=== PATIENT | female | born 1940 | race Caucasian/White ===

== ENCOUNTER 2016-08-31 13:02 | Emergency (ER) | payer MEDICARE, MEDICAID ==
--- NOTE | 2016-08-31 13:22 | EDPRACDOC ---
- General Information Stated Complaint: WEAKNESS Time Seen by Provider: 08/31/16 13:08 Information Source: Sort Manager Mode Of Arrival: Ambulance Home Medications: Home Medications Aspirin [Aspirin, Chewable] 81 mg PO DAILY 07/17/13 Calcium Carbonate + Vitamin D [Oscal with Vitamin D] 500 mg PO BID 07/17/13 Lactulose [Enulose] 30 ml PO DAILY PRN 07/17/13 [id number] Ethyl Esters [Lovaza ([place]-3 Acid Ethyl Esters)] 1,000 mg PO DAILY 07/17/13 Sennosides/Docusate Sodium [Senna S Tablet] 1 tab PO HS 07/17/13 Risperidone Microspheres [Risperdal Consta] 37.5 mg IM .[id number] 04/20/14 Health Shake Supplement 1 each PO DAILY@0700,1100 06/15/14 Dimethicone/Zinc Oxide [Alexandra Protect Cream] 142 gm TOP Q2H 08/31/16 Divalproex Sodium [Depakote] 375 mg PO BID 08/31/16 Loratadine [Claritin] 10 mg PO DAILY 08/31/16 Nitrofurantoin Monohyd/M-Cryst [Macrobid 100 mg Capsule] 100 mg PO .[id number] Rivastigmine Tartrate [Exelon] 6 mg PO BID 08/31/16 Zinc Oxide 30 gm TOP Q2H 08/31/16 Allergies/Adverse Reactions: Allergies Allergy/AdvReac Type Severity Reaction Status Date / Time Sulfa (Sulfonamide Allergy Unknown Unknown Verified 08/31/16 14:24 Antibiotics) - History of Present Illness HPI: PT PRESENTS VIA EMS FROM [facility]. LIMITED HISTORY. NON OBTAINED BY PATIENT. PT IS DROOLING, TONGUE PROTRUDING, DOES NOT APPEAR SWOLLEN. PUPILS PINPOINT. ED Past Medical History - History Reviewed Yes Nurses notes reviewed and agree except as marked - Patient Medical History Neurological History: Reports: Dementia Cardiac History: Reports: Hypertension, Congestive Heart Failure (PER PT), Hypercholesterolemia Respiratory History: Reports: COPD Musculoskeletal History: Reports: Arthritis, Osteoarthritis Psychological History: Reports: Bipolar Disorder (PT DENEIS BUT RECORDS CONFIRM) . Denies: Substance Use Disorder Systemic History: Reports: Diabetes. Denies: Cancer Surgical History: Reports: Hysterectomy, Other (Right hip ORIF) - Family Medical History Reports: Diabetes (In grandparent.), Cancer (Father with prostate cancer.), Cardiac Disorders (Mother with [place].) - Social Medical History Smoking Status: Former smoker Social History: Denies: Substance Use Disorder EDM Review of Systems - Review of Systems ROS Unobtainable: Yes Review of systems cannot be obtained due to the patient's medical condition - Physical Exam Constitutional: No apparent distress Oriented to: Unable to Test Last recorded Vital Signs: Oxygen Pulse Oxygen Saturation O2 Device Oxygen Flow Rate Fraction of Inspired Oxygen ( FIO2) - HEENT Head: Normal Eye Exam: Other (PINPOINT. APPEARS TO HAVE DIFFICULTY LOOKING UP.) Nose: No Symptoms Reported Neck: Normal - Respiratory/Cardiovascular Respiratory: Normal - CTA Cardiovascular: Normal - GI Tenderness: Non tender - Musculoskeletal Back: Normal Extremities: Normal - Integumentary Skin: Cool Lymphatics: Normal - Neurologic Memory Impaired: Unable to Test Motor Function: Unable to Test - Re-evaluation Re-evaluation 1 Re-evaluation Time: 16:23 PT APPEARS IMPROVED. TONGUE NOT PROTRUDING. NOT DROOLING. PATENT AIRWAY. - Results 08/31/16 14:15 08/31/16 14:15 Decision Time to Discharge: 16:21 - Departure Yes I personally saw and evaluated the patient. Disposition: Home Condition: Stable Final Diagnosis: Attacks of weakness Altered mental status Qualifiers: Altered mental status type: unspecified Qualified Code(s): R41.82 - Altered mental status, unspecified Instructions: Weakness (General) Referrals: None,No Provider [Primary Care Provider] - One Week
[2016-08-31 13:23] VITALS: TEMP 97.4
[2016-08-31 13:31] VITALS: BMI 28.3
[2016-08-31 13:33] LABS: WBC/URINE 0-2 (0-5)
[2016-08-31 13:36] LABS: LEUKOCYTES/URINE NEG (NEGATIVE); NITRITE/URINE NEG (NEGATIVE); URINE OCCULT BLOOD NEG (NEG/TRACE)
[2016-08-31 13:54] LABS: ALLEN'S TEST PASS; BEb 9.2 (+/- 2); TCO2 34.8 MMOL/L (23-27)
[2016-08-31 13:55] LABS: ABG Draw Site Right Radial
[2016-08-31 14:26] LABS: AUTOMATED BASOPHIL 0.7 % (0-2); AUTOMATED EOSINOPHIL 0.7 % (0-5); AUTOMATED LYMPH 32.1 % (17-44); AUTOMATED MONOCYTE 13.1 % (3-10); AUTOMATED NEUTROPHIL 53.4 % (45-76); MPV 7.3 fL (7.4-10.4)
[2016-08-31 14:38] LABS: BLOOD UREA NITROGEN 24 MG/DL (7-17); CALC CORRECTED 10.7 MG/DL (8.4-10.2); CALCIUM 10.3 MG/DL (8.4-10.2); CALCULATED OSMOLALITY 276 MOs/Kg (270-290); CHLORIDE 101 mEq/L (98-107); GLUCOSE 118 MG/DL (70-99); SODIUM LEVEL 141 mEq/L (137-146)
--- NOTE | 2016-08-31 15:54 | DIRPT ---
CLINICAL DATA: Altered mental status EXAM: CT HEAD WITHOUT CONTRAST TECHNIQUE: Contiguous axial images were obtained from the base of the skull through the vertex without intravenous contrast. COMPARISON: 10/25/2014 FINDINGS: No skull fracture is noted. Again noted skull hyperostosis interna in frontal and parietal region. There is mucosal thickening with partial opacification bilateral ethmoid air cells. Mild mucosal thickening bilateral frontal sinus. Mucosal thickening bilateral sphenoid sinus. Atherosclerotic calcifications of carotid siphon. The mastoid air cells are unremarkable. No intracranial hemorrhage, mass effect or midline shift. No acute cortical infarction stable atrophy and chronic white matter disease. IMPRESSION: No acute intracranial abnormality. Stable atrophy and chronic white matter disease. No definite acute cortical infarction. Extensive paranasal sinuses disease as described above. Electronically Signed By: Trevon Santana M.D. On: 08/31/2016 15:51
--- NOTE | 2016-08-31 16:18 | DIRPT ---
CLINICAL DATA: 76-year-old female altered mental status, unable to and Sir questions. Initial encounter. EXAM: PORTABLE CHEST 1 VIEW COMPARISON: 10/25/2014 and earlier FINDINGS: Portable AP upright view at 1535 hours. Stable lung volumes. Stable cardiac size and mediastinal contours. Incidental mitral annular calcification. Calcified aortic atherosclerosis. Allowing for portable technique, the lungs are clear. No pneumothorax or pleural effusion. Chronic endplate spurring in the spine. IMPRESSION: No acute cardiopulmonary abnormality. Electronically Signed By: Gonzalez Mckeon M.D. On: 08/31/2016 16:15
[2016-08-31 17:09] VITALS: BP 130/78; PULSE 86
== END 2016-08-31 17:38 | disposition home or self-care (01) ==
LOC: ED 13:02
DX: R53.1 Weakness (principal); R41.82 Altered mental status, unspecified
CPT/HCPCS: 36415; 36600; 70450; 71010; 80053; 81001; 82803; 83690; 83880; 85025; 87040; 87086; 99283

== ENCOUNTER 2016-08-31 20:00 | Inpatient (IN) | payer MEDICARE, MEDICAID ==
--- NOTE | 2016-08-31 20:45 | EDPRACDOC ---
- Treatment Prior to ED Arrival Reported Medications/Treatment IT ANALYST EMS Treatment BLS - General Information Chief Complaint: Generalized Weakness Stated Complaint: WEAKNESS Time Seen by Provider: 08/31/16 20:20 Information Source: Residential Mode of Arrival:: Ambulance Home Medications: Home Medications Aspirin [Aspirin, Chewable] 81 mg PO DAILY 07/17/13 Calcium Carbonate + Vitamin D [Oscal with Vitamin D] 500 mg PO BID 07/17/13 Lactulose [Enulose] 30 ml PO DAILY PRN 07/17/13 [id number] Ethyl Esters [Lovaza ([place]-3 Acid Ethyl Esters)] 1,000 mg PO DAILY 07/17/13 Sennosides/Docusate Sodium [Senna S Tablet] 1 tab PO HS 07/17/13 Risperidone Microspheres [Risperdal Consta] 37.5 mg IM .[id number] 04/20/14 Health Shake Supplement 1 each PO DAILY@0700,1100 06/15/14 Dimethicone/Zinc Oxide [Alexandra Protect Cream] 142 gm TOP Q2H 08/31/16 Divalproex Sodium [Depakote] 375 mg PO BID 08/31/16 Loratadine [Claritin] 10 mg PO DAILY 08/31/16 Nitrofurantoin Monohyd/M-Cryst [Macrobid 100 mg Capsule] 100 mg PO .[id number] Rivastigmine Tartrate [Exelon] 6 mg PO BID 08/31/16 Zinc Oxide 30 gm TOP Q2H 08/31/16 Allergies/Adverse Reactions: Allergies Allergy/AdvReac Type Severity Reaction Status Date / Time Sulfa (Sulfonamide Allergy Unknown Unknown Verified 08/31/16 14:24 Antibiotics) - History of Present Illness Exact Onset of Symptoms: Unknown Date Symptoms Started: 08/31/16 Symptoms Started: Reports: Suddenly Symptoms: Reports: Facial droop, Slurred speech Symptoms Description: Constant Symptom Severity: Reports: Unable to performs ADL's Weakness: Left: Face HPI: PATIENT PRESENTS FROM [facility] WITH ALTERED MENTAL STATUS. PATIENT HAD BEEN SEEN EARLIER TODAY AND CONTACT FROM [facility] WAS UNAWARE OF ANY NEW CHANGE ALTHOUGH PATIENT WAS DROOLING AND APHASIC. TONIGHT STAFF WHO KNOW HER STATE SHE NORMALLY CAN STAND AND EXPRESS HER NEEDS. TONIGHT THEY NOTE SHE HAS LEFT FACIAL DROOP AND SLURRED SPEECH. UNKNOWN TIME OF OCCURRENCE ED Past Medical History - History Reviewed Yes Nurses notes reviewed and agree except as marked Travel Outside of [place] in the Last 3 Months?: No - Patient Medical History Neurological History: Reports: Dementia Cardiac History: Reports: Hypertension, Congestive Heart Failure (PER PT), Hypercholesterolemia Respiratory History: Reports: COPD Musculoskeletal History: Reports: Arthritis, Osteoarthritis Psychological History: Reports: Bipolar Disorder. Denies: Depression, Substance Use Disorder Systemic History: Reports: Diabetes. Denies: Cancer Surgical History: Reports: Hysterectomy, Other (Right hip ORIF) - Family Medical History Reports: Diabetes (In grandparent.), Cancer (Father with prostate cancer.), Cardiac Disorders (Mother with [place].) - Social Medical History Smoking Status: Former smoker Social History: Denies: Substance Use Disorder ETOH: None Substance Abuse: None Lives In: Group Home Facility EDM Review of Systems - Review of Systems ROS Unobtainable: Yes Hx Limited due to age/level of understanding of patient Constitutional: No Symptoms Reported. negative: Fever, Chills, Weakness, Fatigue, Loss of Appetite Eyes: No Symptoms Reported. negative: Redness, Blurred Vision, Double Vision, Discharge, Pain, Light Sensitive, Photophobia Ears: No Symptoms Reported. negative: Pain, Hearing Loss, Drainage, Ear Pulling Throat: No Symptoms Reported. negative: Pain, Swelling Nose: No Symptoms Reported. negative: Congestion, Bleeding, Discharge, Injection, Swelling, Deformity, Ecchymosis, Tender, Abrasion, Laceration Mouth: No Symptoms Reported. negative: Pain, Drooling Respiratory: No Symptoms Reported. negative: Cough, Brassy Cough, Barky Cough, Shortness of Breath, Wheezing, Hemoptysis Cardiovascular: No Symptoms Reported. negative: Chest Pain, Palpitations, Syncope, Edema, Orthopnea, PND, Skin Mottling, Cyanosis Gastrointestinal: No Symptoms Reported. negative: Pain, Constipation, Nausea, Vomiting, Diarrhea, Melena, Formula Intolerance Genitourinary: No Symptoms Reported. negative: Dysuria, Hematuria, Frequency, Discharge, Bleeding, Testicular Pain, Neurological: Speech Difficulty, Weakness. negative: Dizziness, Gait Difficulty , Headache, Numbness, Seizure Musculoskeletal: No Symptoms Reported. negative: Neck, Chestwall, Ribs, Back, Shoulder, Arm, Elbow, Forearm, Wrist, Hand, Pelvis, Hip, Femur, Knee, Leg, Ankle , Foot Integumentary: No Symptoms Reported. negative: Itching, Rash, Bruising, Wound Allergic/Immunologic: No Symptoms Reported. negative: Hives, Itching Hematologic: No Symptoms Reported. negative: Lymphadenopathy, Easy Bruising, Easy Bleeding Endocrine: No Symptoms Reported. negative: Weight Gain, Weight Loss Psychiatric: No Symptoms Reported. negative: Anxiety, Depression, Hallucinations, Insomnia, Suicidal - Physical Exam Constitutional: Alert (Awake) Oriented to: Not Oriented Last recorded Vital Signs: Last Vital Signs Temp 97.4 F L 08/31/16 20:09 Pulse 93 08/31/16 20:09 Resp 18 08/31/16 20:09 BP 124/56 L 08/31/16 20:09 Pulse Ox 97 08/31/16 20:09 Oxygen Pulse Oxygen Saturation 97 O2 Device Room Air Oxygen Flow Rate Fraction of Inspired Oxygen ( FIO2) - HEENT Head: Other (LEFT FACIAL DROOP) Eye Exam: Normal (PERRL, EOMI, Sclera white) Oropharynx: Normal (Pharynx:Moist without exudate,Gums-no swelling) Tympanic Membrane: Normal ENT EAC: Normal TMJ: Normal Nose: No Symptoms Reported (septum midline) Neck: Normal (FROM, trachea at midline) - Respiratory/Cardiovascular Respiratory: Normal - CTA (BBS clear to auscultation without adventitious sounds ) Cardiovascular: Normal (RRR without murmur, gallop or rub) - GI Auscultation: Normal (NABS) Palpation: Normal (Soft,No rebound or guarding, non distended) Tenderness: Non tender Oshea's Sign: Negative - Musculoskeletal Back: Normal (Non-Tender) Extremities: Normal (Normal tone, Pulses 2+ No cyanosis or edema, FROM) - Integumentary Skin: Normal, Warm, Dry Lymphatics: Normal (no adenopathy) - Neurologic Memory Impaired: Normal Motor Function: Normal (Normal tone, Pulses 2+ No cyanosis or edema, FROM) Cranial Nerve: Normal (CN II-X11 intact sensation, strength 5/5) Cerebellar: Normal Mood Description: Normal Perception: Normal NIH Stroke Scale Initial Evaluation Level of Consciousness: Alert LOC- Question: Answers Both Incorrect LOC Commands: One Task Correctly Best Gaze: Normal Visual: No Visual Loss Facial Palsy: Partial Paralysis Motor Arm LEFT: No Movement Motor Arm RIGHT: Drift Motor Leg LEFT: No Effort Against [place] Motor Leg RIGHT: No Effort Against [place] Limb Ataxia: Absent Sensory: Normal Best Language: Mild to Moderate Aphasia Dysarthria: Mild to Moderate Extinction and Inattention: No Abnormality (Neglect) Score: 18out of42 - Departure Yes I personally saw and evaluated the patient. Disposition: Admit IP To This Hospital Condition: Fair Final Diagnosis: Acute CVA (cerebrovascular accident), Left-sided weakness Instructions: Weakness (General) Education/Counseling Given To: Patient Education/Counseling Given Regarding: Diagnosis, Treatment, Prognosis Referrals: Tereza Vallejo MD [Primary Care Provider] - One Week Decision to Admit Time: 21:01 Decision to admit date: 08/31/16 Decision to admit: from ED - Physician Consulted Neurology Time Called: 20:56 Provider Called: MUSA (NEUROLOGY) Time [employer] Returned Call: 20:58 (GIVE PLAVIX) Hospitalist Time Called: 21:01 Provider Called: Neel Garcia Time [employer] Returned Call: 21:01
[2016-08-31] MEDS ORDERED: CLOPIDOGREL 75 MG TAB PO ONE (20:55)
--- NOTE | 2016-08-31 23:56 | HISTPHYS ---
- Chief Complaint weak - History of Present Illness PRIMARY CARE PHYSICIAN: Dr. Vallejo The patient is a resident of [facility] HPI: The patient is a 76 yo woman from [facility] who presented earlier today with some drooling and tongue protruding, had a workup, the drooling and tongue protrusion mostly resolved, and then the patient was sent back to the facility. The patient returned to the emergency department later today with worsening drooling, paucity of speech, and altered mental status; this was apparently a worsening of her status. The patient is able to say only a few garbled words and cannot give any history, so history is obtained from the emergency department staff, medical records, and the facility staff. Per staff at the facility, the patient's baseline was that she uses a wheelchair, but she can normally talk without difficulty, does not have upper extremity weakness, and does not have any difficulty with eating. Usually she has no difficulty eating but by supper time today, she could not even take pureed foods, she was drooling , and she had a facial droop. They also noticed today that her left arm is weak. Onset of symptoms: unclear. First episode happened around noon today. Then after she returned, she gradually worsened. but happened before 6 pm today. Duration: intermittent. Location: Face, mouth, left arm. Radiation: none. Character: decreased speaking. Drooling. Left arm weakness. Altered mental status/confusion. Alleviated by nothing. Exacerbated by nothing. Associated symptoms: decreased speaking. Drooling. Left arm weakness. Altered mental status/confusion. Treatments: none except usual medications. The emergency department physician discussed the case with the neurologist compressor station operator, Dr. Moise, who recommended that the patient be placed on Plavix because she was already taking aspirin. - Medical History Cardiac History: Reports: Hypertension, Congestive Heart Failure (ECHO 2014: EF55-60%. Diastolic dysfunction. Pulm art press 39mmHg. Mild TR.), Hypercholesterolemia (AND PERIPHERAL VASCULAR DISEASE), Other Respiratory History: Reports: COPD (possible diagnosis) Musculoskeletal History: Reports: Arthritis, Osteoarthritis Systemic History: Reports: Diabetes. Denies: Cancer Neurological History: Reports: Dementia Psychological History: Reports: Bipolar Disorder (TYPE 1.). Denies: Depression , Substance Use Disorder - Surgical History Reports: Hysterectomy, Other (Right hip ORIF) - Medictions/Allergies Allergies Sulfa (Sulfonamide Antibiotics) Allergy (Unknown, Verified 08/31/16 14:24) Unknown Per [facility] Cynthia ADAME. Current Medication List: Reviewed Home Medications Aspirin [Aspirin, Chewable] 81 mg PO DAILY 07/17/13 Calcium Carbonate + Vitamin D [Oscal with Vitamin D] 500 mg PO BID 07/17/13 Lactulose [Enulose] 30 ml PO DAILY PRN 07/17/13 Ywgvz-4-Pobd Ethyl Esters [Lovaza ([place]-3 Acid Ethyl Esters)] 1,000 mg PO DAILY 07/17/13 Sennosides/Docusate Sodium [Senna S Tablet] 1 tab PO HS 07/17/13 Risperidone Microspheres [Risperdal Consta] 37.5 mg IM .[id number] 04/20/14 Health Shake Supplement 1 each PO DAILY@0700,1100 06/15/14 Dimethicone/Zinc Oxide [Alexandra Protect Cream] 142 gm TOP Q2H 08/31/16 Divalproex Sodium [Depakote] 375 mg PO BID 08/31/16 Loratadine [Claritin] 10 mg PO DAILY 08/31/16 Nitrofurantoin Monohyd/M-Cryst [Macrobid 100 mg Capsule] 100 mg PO .[id number] Rivastigmine Tartrate [Exelon] 6 mg PO BID 08/31/16 Zinc Oxide 30 gm TOP Q2H 08/31/16 - Family History Reports: Diabetes (In grandparent.), Cancer (Father with prostate cancer.), Cardiac Disorders (Mother with [place].) - Social History Lives: in [facility] ([facility]) Smoking Status: Former smoker Social History: Denies: Alcohol Use, Substance Use Disorder Patient is DNR per facility staff. - Review of Systems Yes Review of systems cannot be obtained due to the patient's medical condition - Physical Exam Vital Signs: Initial Vitals Temperature 97.4 F L 08/31/16 20:09 Pulse Rate 93 08/31/16 20:09 Respiratory Rate 18 08/31/16 20:09 Blood Pressure 124/56 L 08/31/16 20:09 Pulse Oxygen Saturation 97 08/31/16 20:09 Vital Signs - 24 hr 08/31/16 08/31/16 09/01/16 20:09 22:30 00:48 Temperature 97.4 F L Pulse Rate 93 97 114 Respiratory 18 18 20 Rate Blood Pressure 124/56 L 120/58 L 119/70 Pulse Oxygen 97 97 96 Saturation 09/01/16 09/01/16 01:34 01:48 Temperature 98 F Pulse Rate 121 H 103 Respiratory 18 Rate Blood Pressure 97/70 L Pulse Oxygen 94 Saturation Weight: 77.1 kg Height: 5'5" BMI: 28.3 - Other Exam Other Exam Findings: GENERAL: Ill-appearing, well nourished, in acute distress. HEENT: Normocephalic, atraumatic; pupils equal and round. Nares patent, without discharge or bleeding. No oropharyngeal lesions or erythema. Mucous membranes are dry. Patient is drooling. NECK: is supple, no masses, trachea midline. RESPIRATORY: Clear to auscultation bilaterally. Chest wall movements are symmetric. No use of accessory muscles to breathe. No wheezing, rales, rhonchi. CARDIOVASCULAR: Normal S1, S2. Murmur 2/6 systolic. No rubs, or gallops. PMI non -displaced. Carotids: no carotid bruits. No bradycardia or tachycardia. DP pulses 1-2+ bilaterally. GI: soft, nontender, non-distended, normal active bowel sounds. No hepatosplenomegaly. INTEGUMENT: Clean, dry, and intact. Scattered areas of dry skin with erythema and scaling, especially on legs. MUSCULOSKELETAL: No cyanosis. No clubbing. Edema: trace lower extremity edema bilaterally. NEUROLOGICAL: Cranial nerves 2-12 grossly intact. Motor: 4+/5 in right upper extremity, 3-/5 in left upper extremity, 1/5 in left lower extremity and 1/5 in right lower extremity. Reflexes: 2+ bilaterally. Babinski: toes downgoing on right and upgoing on left. Further neurologic exam could not be performed due to the medical condition of the patient. Patient mostly not speaking, but intermittently she will yell out something that is garbled but is sometimes understandable. Follows some simple commands. PSYCHIATRIC: Not oriented. Intermittently somnolent and at other times slightly agitated affect. LYMPHATIC: No cervical lymphadenopathy. No supraclavicular lymphadenopathy. - Lab Results Labs: Were obtained earlier today at previous ED visit. CBC: WBCs 5.5 Hemoglobin 13.5 Hematocrit 41.5 Platelets 154 Chemistry: Sodium 141 K 4.4 Cl 101 Bicarb 30 BUN 24 Cr 0.9 Glucose 118 Calcium 10.3 Corrected 10.7 Tot Bili 0.5 AST 18 ALT 25 AP 63 BNP 5190 Tot Protein 7 Albumin 3.6 Lipase 81 ABG: PH 7.5 PCO2 43 PO2 69 H CO3 33.5 Total CO2 34.8 Base excess 9.2 UA: SG >= 1.035 Trace protein Nena, hazy Epithelial cells 3+ Bacteria few Hyaline casts 5-10 RBC 2-5 WBC 0-2 MICROBIOLOGY: 08/31/16: Blood cultures x 2 08/31/16: Urine culture pending. - Diagnostic Findings EKG pending. Head CT 08/31/16 at 1551: EXAM: CT HEAD WITHOUT CONTRAST TECHNIQUE: Contiguous axial images were obtained from the base of the skull through the vertex without intravenous contrast. COMPARISON: 10/25/2014 FINDINGS: No skull fracture is noted. Again noted skull hyperostosis interna in frontal and parietal region. There is mucosal thickening with partial opacification bilateral ethmoid air cells. Mild mucosal thickening bilateral frontal sinus. Mucosal thickening bilateral sphenoid sinus. Atherosclerotic calcifications of carotid siphon. The mastoid air cells are unremarkable. No intracranial hemorrhage, mass effect or midline shift. No acute cortical infarction stable atrophy and chronic white matter disease. IMPRESSION: No acute intracranial abnormality. Stable atrophy and chronic white matter disease. No definite acute cortical infarction. Extensive paranasal sinuses disease as described above. Chest x-ray, 08/31/16 at 16:15, viewed personally: EXAM: PORTABLE CHEST 1 VIEW COMPARISON: 10/25/2014 and earlier FINDINGS: Portable AP upright view at 1535 hours. Stable lung volumes. Stable cardiac size and mediastinal contours. Incidental mitral annular calcification. Calcified aortic atherosclerosis. Allowing for portable technique, the lungs are clear. No pneumothorax or pleural effusion. Chronic endplate spurring in the spine. IMPRESSION: No acute cardiopulmonary abnormality. UPDATE: EK bpm. Atrial fibrillation with rapid ventricular response with PVCs. Low voltage QRS. Cannot rule out anterior infarct, age undetermined. Flat T wave in aVF. Slight T wave inversion in V6. Reviewed EKG personally. - Assessment (1) Acute CVA (cerebrovascular accident) I63.9 - CEREBRAL INFARCTION, UNSPECIFIED Acute Present on Admission: Yes Plan: CVA order set. MRI head and Ultrasound of carotids in the AM. NPO until speech therapy evaluation. Physical therapy and occupational therapy evaluations. Neuro checks q 4 hours. Telemetry. Patient is taking daily aspirin and had aspirin earlier today. Add statin. Check lipid levels. Will add Plavix, which was recommended by the neurologist, Dr. Moise, per report from the emergency department physician. NOTE: TPA NOT GIVEN. NO TPA DUE TO: patient outside of time window and diagnosis is not certain, and symptoms are improving. (2) Left-sided weakness M62.81 - MUSCLE WEAKNESS (GENERALIZED) Acute Present on Admission: Yes Left arm weakness appears to be improving on admission. She is able to move her left arm against gravity, but it is weaker than the right. Bilateral lower extremity weakness is likely chronic. Plan: PT/OT evaluation and treatment. (3) Facial droop R29.810 - FACIAL WEAKNESS Acute Present on Admission: Yes Facial droop. Drooling. Plan: Speech therapy evaluation and treatment. (4) Impaired speech R47.9 - UNSPECIFIED SPEECH DISTURBANCES Acute Present on Admission: Yes Qualifiers: Speech disturbance type: S Plan: Speech therapy eval and treat. NPO until speech therapy evaluation. (5) Altered mental status R41.82 - ALTERED MENTAL STATUS, UNSPECIFIED Acute Present on Admission: Yes Qualifiers: Altered mental status type: A Coma depth: C Coma timing: C Patient's baseline is unclear, but per facility she does normally speak and participate in activities. On admission she is saying only a few garbled words. Plan: CVA workup underway. Continue evaluation. Case Care Discussed with: Patient, Nursing Staff Total Time: 45 min Critical Care: Yes Code: 291 NIH Stroke Scale Initial Evaluation Level of Consciousness: Alert LOC- Question: Answers Both Incorrect LOC Commands: One Task Correctly Best Gaze: Normal Visual: No Visual Loss Facial Palsy: Partial Paralysis Motor Arm LEFT: Drift Motor Arm RIGHT: No Drift Motor Leg LEFT: Some Effort Against [place] Motor Leg RIGHT: Some Effort Against [place] Limb Ataxia: Unable to Assess Sensory: Normal Best Language: Severe Aphasia Dysarthria: Mild to Moderate Extinction and Inattention: No Abnormality (Neglect) Score: 13out of42
[2016-09-01] MEDS ORDERED: DIMETHICONE TOP SCH (01:00)
[2016-09-01] MEDS ORDERED: RISPERIDONE IM SCH (01:00)
[2016-09-01] MEDS ORDERED: ZINC OXIDE 30 GM TOP SCH (01:00)
[2016-09-01] MEDS ORDERED: SECURA EXTRA PROTECTIVE CREAM TOP SCH (01:00)
[2016-09-01] MEDS ORDERED: ZINC OXIDE TOP SCH (01:00)
[2016-09-01] MEDS: NS IV SCH ×3 (02:38→18:11)
[2016-09-01] MEDS: VALPROATE SODIUM IV SCH ×3 (02:38→18:11)
[2016-09-01] MEDS: NS 1,000 ML IV SCH ×2 (02:49→16:00)
[2016-09-01] MEDS ORDERED: ASPIRIN 300 MG SUPP PR ONE (03:00)
[2016-09-01] MEDS ORDERED: BISACODYL 5 MG TAB PO PRN (03:30)
[2016-09-01] MEDS ORDERED: GUAIFEN 100 MG-DEXTROMETH 10 MG PER 5 ML PO PRN (03:30)
[2016-09-01] MEDS ORDERED: ONDANSETRON HCL 4 MG/2 ML VIAL IV PRN (03:30)
[2016-09-01] MEDS ORDERED: ACETAMINOPHEN 325 MG/TAB TABLET PO PRN (03:30)
[2016-09-01] MEDS ORDERED: BENZONATATE 100 MG PERLES PO PRN (03:30)
[2016-09-01] MEDS ORDERED: ACETAMINOPHEN 325 MG SUPP PR PRN (03:30)
[2016-09-01] MEDS ORDERED: Docusate Sodium 100 MG CAP PO PRN (03:30)
[2016-09-01] MEDS ORDERED: TEMAZEPAM 15 MG CAP PO PRN (03:30)
[2016-09-01] MEDS ORDERED: SIMETHICONE 80 MG TAB PO PRN (03:30)
[2016-09-01] MEDS ORDERED: SENNA CONCENTRATE TAB PO PRN (03:30)
[2016-09-01] MEDS ORDERED: PROMETHAZINE 25 MG/ML VIAL IV PRN (03:30)
[2016-09-01 04:14] LABS: MPV 7.5 fL (7.4-10.4)
[2016-09-01 04:24] LABS: BLOOD UREA NITROGEN 22 MG/DL (7-17); CALCIUM 10.6 MG/DL (8.4-10.2); CALCULATED OSMOLALITY 281 MOs/Kg (270-290); CHLORIDE 101 mEq/L (98-107); GLUCOSE 108 MG/DL (70-99); SODIUM LEVEL 144 mEq/L (137-146)
--- NOTE | 2016-09-01 10:19 | GENMEDPROG ---
Chief Complaint: Acute CVA, L arm/leg weakness, facial drooping, speech slurred, HTN Currently: Denies: Ambulating - Physical Examination Vital Signs and I&O: Last Vital Signs Temp 97.6 F 09/01/16 08:12 Pulse 93 09/01/16 08:12 Resp 20 09/01/16 08:12 BP 97/56 L 09/01/16 08:12 Pulse Ox 94 09/01/16 08:12 Oxygen Pulse Oxygen Saturation 94 O2 Device Room Air Oxygen Flow Rate Fraction of Inspired Oxygen ( FIO2) Intake & Output 08/29/16 08/30/16 08/31/16 09/01/16 23:59 23:59 23:59 23:59 Patient's weight 66.224 kg General: Alert, Mild distress, Well nourished, Weakness (L side), Other (Aphasic ? No verbal response made) HEENT: PERRLA, EOMI, Anicteric Sclera, Mucous membr. moist/pink (drooling L side of mouth, N-L flattening on L) Lymphatics: Normal (no adenopathy) Respiratory: Normal - CTA (BBS clear to auscultation without adventitious sounds ) Cardiovascular: Regular rate and rhythm, Normal S1, Normal S2 GI: Normal bowel sounds, Soft, Non tender Extremities/Musculoskeletal: Normal pulses, DJD, Other (paralysis or weakness on left side LUE/LLE) Skin: Warm,Dry and Intact, No breakdown Neurological: Strength (L sided paralysis [id number] and L sided neglect), Drowsy, Somnolent, Lethargy. negative: Normal speech (aphasic) Psych/Mental Status: Normal Affect (L facial weakness), Confused, Disoriented, Somnolent, Lethargic Lab/DI/Studies Reviewed: Laboratory Tests 09/01/16 09/01/16 09/01/16 03:50 03:50 03:50 WBC 7.3 Hgb 12.6 Hct 38.9 Plt Count 159 Sodium 144 Potassium 4.4 Chloride 101 Carbon Dioxide 33 Anion Gap 14 BUN 22 H Creatinine 0.90 Estimated GFR (MDRD) > 60 Glucose 108 H Calculated Osmolality 281 Calcium 10.6 H Triglycerides 70 Cholesterol 163 LDL Cholesterol, Calc 93.0 VLDL Cholesterol, Calc 14.0 HDL Cholesterol 56.0 Cholesterol/HDL Ratio 2.9 Carotid Doppler: IMPRESSION: 1. Mild amount of plaque at the level of the right carotid bulb and proximal right ICA. Estimated right ICA stenosis is less than 50%. 2. The rest of the study is limited technically due to lack of patient cooperation and inability to turn her head to the right. Both vertebral arteries are not detected and there is extremely limited evaluation of the left ICA only just beyond its origin. Electronically Signed By: Chris Mejia M.D. On: 09/01/2016 13:20 - Assessment (1) Acute CVA (cerebrovascular accident) Acute I63.9 - CEREBRAL INFARCTION, UNSPECIFIED Comment/Plan: CVA order set. Stroke seems to be progressing somewhat. She did receive aspirin, but no TPA due to timing/onset of symptoms being prior to noon, which was greater than 6 hours before her return trip at 18:30. MRI head in the AM. Ultrasound of carotids shows less than 50% occlusion of the R-ICA. The L-ICA was not well seen due to positioning of the patient. NPO until speech therapy evaluation. Physical therapy and occupational therapy evaluations. Neuro checks q 4 hours. Telemetry. Patient is taking daily aspirin and had aspirin earlier today. Add statin. Check lipid levels. Will add Plavix, which was recommended by the neurologist, Dr. Moise, per report from the emergency department physician. NOTE: TPA NOT GIVEN. NO TPA DUE TO: patient outside of time window and diagnosis is not certain, and symptoms are improving. (2) Facial droop Acute R29.810 - FACIAL WEAKNESS Comment/Plan: Facial droop. Drooling. Plan:Speech therapy evaluation and treatment. (3) Impaired speech Acute R47.9 - UNSPECIFIED SPEECH DISTURBANCES Qualifiers: Speech disturbance type: dysarthria Qualified Code(s): R47.1 - Dysarthria and anarthria Comment/Plan: Plan: Speech therapy eval and treat. NPO until speech therapy evaluation. (4) Left-sided weakness Acute M62.81 - MUSCLE WEAKNESS (GENERALIZED) Comment/Plan: Left arm weakness appears to be fluctuating on admission. She is able to move her left arm against gravity, but it is weaker than the right. It is not clear to me if she is better or worse. Bilateral lower extremity weakness is likely chronic. Plan:PT/OT evaluation and treatment. (5) Altered mental status Acute R41.82 - ALTERED MENTAL STATUS, UNSPECIFIED Qualifiers: Altered mental status type: somnolence Coma depth: C Coma timing: C Qualified Code(s): R40.0 - Somnolence Comment/Plan: Patient's baseline is unclear, but per facility she does normally speak and participate in activities. On admission she is saying only a few garbled words. Plan: CVA workup underway. Continue evaluation. (6) Bipolar disorder Chronic F31.9 - BIPOLAR DISORDER, UNSPECIFIED Qualifiers: Active/Remission status: in remission of unspecified degree Current bipolar episode type: C Current episode severity: C Psychotic features: P Most recent bipolar episode type: M Qualified Code(s): F31.70 - Bipolar disorder, currently in remission, most recent episode unspecified Comment/Plan: Continue meds. Possible cause of ams (7) COPD (chronic obstructive pulmonary disease) Chronic J44.9 - CHRONIC OBSTRUCTIVE PULMONARY DISEASE, UNSPECIFIED Qualifiers: COPD type: unspecified COPD Chronic bronchitis type: C Emphysema type: E Qualified Code(s): J44.9 - Chronic obstructive pulmonary disease, unspecified Comment/Plan: Stable with no wheezing or respiratory distress at this time. Plan: DuoNeb treatments p.r.n. wheezing or respiratory distress. (8) Diabetes mellitus Chronic E11.9 - TYPE 2 DIABETES MELLITUS WITHOUT COMPLICATIONS Qualifiers: Diabetes mellitus type: type 2 Diabetes mellitus complication status: with circulatory complication Diabetes mellitus complication detail: with other circulatory complications Diabetic retinopathy severity: D Proliferative retinopathy type: P Diabetes mellitus macular edema: D Diabetes mellitus long-term insulin use: without vermin exterminator use Laterality: L Chronic kidney disease stage: C Qualified Code(s): E11.59 - Type 2 diabetes mellitus with other circulatory complications Comment/Plan: continue meds, accu check, ssi (9) Hypertension Chronic I10 - ESSENTIAL (PRIMARY) HYPERTENSION Qualifiers: Hypertension type: essential hypertension Qualified Code(s): I10 - Essential (primary) hypertension Comment/Plan: Continue meds and monitor
[2016-09-01] MEDS: CLOPIDOGREL 75 MG TAB PO SCH (10:39)
[2016-09-01] MEDS: ASPIRIN (CHEWABLE) 81 MG TAB PO SCH (10:40)
[2016-09-01] MEDS: OMEGA-3-ACID ETHYL ESTERS 1000 MG CAP PO SCH (10:40)
[2016-09-01] MEDS: RIVASTIGMINE 13.3 MG PATCH TOP SCH (10:40)
[2016-09-01] MEDS: Loratadine 10 MG TAB PO SCH (10:40)
--- NOTE | 2016-09-01 13:23 | DIRPT ---
CLINICAL DATA: CVA. EXAM: BILATERAL CAROTID DUPLEX ULTRASOUND TECHNIQUE: [place] scale imaging, color Doppler and duplex ultrasound were performed of bilateral carotid and vertebral arteries in the neck. COMPARISON: None. FINDINGS: Criteria: Quantification of carotid stenosis is based on velocity parameters that correlate the residual internal carotid diameter with NASCET-based stenosis levels, using the diameter of the distal internal carotid lumen as the denominator for stenosis measurement. The following velocity measurements were obtained: RIGHT ICA: 48/9 cm/sec CCA: 40/5 cm/sec SYSTOLIC ICA/CCA RATIO: 1.2 DIASTOLIC ICA/CCA RATIO: 1.7 ECA: 53 cm/sec LEFT ICA: 64/13 cm/sec CCA: 69/12 cm/sec SYSTOLIC ICA/CCA RATIO: 0.9 DIASTOLIC ICA/CCA RATIO: 1.1 ECA: 83 cm/sec RIGHT CAROTID ARTERY: There is a mild amount of partially calcified plaque at the level of the carotid bulb and proximal right ICA. Velocities and waveforms are normal and estimated right ICA stenosis is less than 50%. RIGHT VERTEBRAL ARTERY: The right vertebral artery was not detected. This was felt to be more related to technical difficulty due to patient positioning and inability to cooperate rather than indicative of obstructive disease at the time of the procedure. LEFT CAROTID ARTERY: The common carotid artery shows no evidence of plaque or stenosis. Just above the carotid bifurcation, the rest of the internal carotid artery in the neck was not able to be imaged due to inability of the patient to turn her neck dorsal right. Very limited visualization of the proximal left ICA origin shows no obvious stenosis. LEFT VERTEBRAL ARTERY: The left vertebral artery was not detected. This was also felt to relate to technical difficulty at the time of the procedure. IMPRESSION: 1. Mild amount of plaque at the level of the right carotid bulb and proximal right ICA. Estimated right ICA stenosis is less than 50%. 2. The rest of the study is limited technically due to lack of patient cooperation and inability to turn her head to the right. Both vertebral arteries are not detected and there is extremely limited evaluation of the left ICA only just beyond its origin. Electronically Signed By: Chris Mejia M.D. On: 09/01/2016 13:20
[2016-09-01] MEDS: ENOXAPARIN 40 MG/0.4 ML PFS SQ SCH (16:48)
[2016-09-01] MEDS: ATORVASTATIN 40 MG TAB PO SCH (16:48)
[2016-09-01] MEDS: DOCUSATE-SENNA CONCENTRATE TAB PO SCH (22:59)
[2016-09-02] MEDS: VALPROATE SODIUM IV SCH ×3 (03:51→17:42)
[2016-09-02] MEDS: NS 1,000 ML IV SCH ×2 (03:51→05:38)
[2016-09-02] MEDS: NS IV SCH ×3 (03:51→17:42)
[2016-09-02] MEDS ORDERED: [UNRECOGNIZED DRUG - OTHER] PO SCH (07:00)
--- NOTE | 2016-09-02 10:59 | GENMEDPROG ---
Currently: Denies: Ambulating - Physical Examination Vital Signs and I&O: Last Vital Signs Temp 99.0 F 09/02/16 08:00 Pulse 96 09/02/16 08:00 Resp 24 09/02/16 08:00 BP 114/61 09/02/16 08:00 Pulse Ox 97 09/02/16 08:00 Oxygen Pulse Oxygen Saturation 97 O2 Device Nasal Cannula Oxygen Flow Rate 2 Fraction of Inspired Oxygen ( FIO2) Intake & Output 08/30/16 08/31/16 09/01/16 09/02/16 23:59 23:59 23:59 23:59 Intake Total 1341 1360 Balance 1341 1360 Patient's weight 66.224 kg 68.084 kg General: Alert, Mild distress, Well nourished, Weakness (L side), Other (Aphasic ? No verbal response made) HEENT: PERRLA, EOMI, Anicteric Sclera, Mucous membr. moist/pink (drooling L side of mouth, N-L flattening on L) Lymphatics: Normal (no adenopathy) Respiratory: Normal - CTA (BBS clear to auscultation without adventitious sounds ) Cardiovascular: Regular rate and rhythm, Normal S1, Normal S2 GI: Normal bowel sounds, Soft, Non tender Extremities/Musculoskeletal: Normal pulses, DJD, Other (paralysis or weakness on left side LUE/LLE) Skin: Warm,Dry and Intact, No breakdown Neurological: Strength (L sided paralysis [id number] and L sided neglect), Drowsy, Somnolent, Lethargy. negative: Normal speech (aphasic) Psych/Mental Status: Normal Affect (L facial weakness), Confused, Disoriented, Somnolent, Lethargic - Assessment (1) Acute CVA (cerebrovascular accident) Acute I63.9 - CEREBRAL INFARCTION, UNSPECIFIED Comment/Plan: CVA order set. Stroke seems to be progressing somewhat. She did receive aspirin, but no TPA due to timing/onset of symptoms being prior to noon, which was greater than 6 hours before her return trip at 18:30. MRI head in the AM. Ultrasound of carotids shows less than 50% occlusion of the R-ICA. The L-ICA was not well seen due to positioning of the patient. NPO until speech therapy evaluation. Physical therapy and occupational therapy evaluations. Neuro checks q 4 hours. Telemetry. Patient is taking daily aspirin and had aspirin earlier today. Add statin. Check lipid levels. Will add Plavix, which was recommended by the neurologist, Dr. Moise, per report from the emergency department physician. NOTE: TPA NOT GIVEN. NO TPA DUE TO: patient outside of time window and diagnosis is not certain, and symptoms are improving. (2) Facial droop Acute R29.810 - FACIAL WEAKNESS Comment/Plan: Facial droop. Drooling. Plan:Speech therapy evaluation and treatment. (3) Impaired speech Acute R47.9 - UNSPECIFIED SPEECH DISTURBANCES Qualifiers: Speech disturbance type: dysarthria Qualified Code(s): R47.1 - Dysarthria and anarthria Comment/Plan: Plan: Speech therapy eval and treat. NPO until speech therapy evaluation. (4) Left-sided weakness Acute M62.81 - MUSCLE WEAKNESS (GENERALIZED) Comment/Plan: Left arm weakness appears to be fluctuating on admission. She is able to move her left arm against gravity, but it is weaker than the right. It is not clear to me if she is better or worse. Bilateral lower extremity weakness is likely chronic. Plan:PT/OT evaluation and treatment. (5) Altered mental status Acute R41.82 - ALTERED MENTAL STATUS, UNSPECIFIED Qualifiers: Altered mental status type: somnolence Coma depth: C Coma timing: C Qualified Code(s): R40.0 - Somnolence Comment/Plan: Patient's baseline is unclear, but per facility she does normally speak and participate in activities. On admission she is saying only a few garbled words. Plan: CVA workup underway. Continue evaluation. (6) Bipolar disorder Chronic F31.9 - BIPOLAR DISORDER, UNSPECIFIED Qualifiers: Active/Remission status: in remission of unspecified degree Current bipolar episode type: C Current episode severity: C Psychotic features: P Most recent bipolar episode type: M Qualified Code(s): F31.70 - Bipolar disorder, currently in remission, most recent episode unspecified Comment/Plan: Continue meds. Possible cause of ams (7) COPD (chronic obstructive pulmonary disease) Chronic J44.9 - CHRONIC OBSTRUCTIVE PULMONARY DISEASE, UNSPECIFIED Qualifiers: COPD type: unspecified COPD Chronic bronchitis type: C Emphysema type: E Qualified Code(s): J44.9 - Chronic obstructive pulmonary disease, unspecified Comment/Plan: Stable with no wheezing or respiratory distress at this time. Plan: DuoNeb treatments p.r.n. wheezing or respiratory distress. (8) Diabetes mellitus Chronic E11.9 - TYPE 2 DIABETES MELLITUS WITHOUT COMPLICATIONS Qualifiers: Diabetes mellitus type: type 2 Diabetes mellitus complication status: with circulatory complication Diabetes mellitus complication detail: with other circulatory complications Diabetic retinopathy severity: D Proliferative retinopathy type: P Diabetes mellitus macular edema: D Diabetes mellitus ferry terminal supervisor insulin use: without halfway use Laterality: L Chronic kidney disease stage: C Qualified Code(s): E11.59 - Type 2 diabetes mellitus with other circulatory complications Comment/Plan: continue meds, accu check, ssi (9) Hypertension Chronic I10 - ESSENTIAL (PRIMARY) HYPERTENSION Qualifiers: Hypertension type: essential hypertension Qualified Code(s): I10 - Essential (primary) hypertension Comment/Plan: Continue meds and monitor
[2016-09-02] MEDS: Loratadine 10 MG TAB PO SCH (11:26)
[2016-09-02] MEDS: ASPIRIN (CHEWABLE) 81 MG TAB PO SCH (11:26)
[2016-09-02] MEDS: CLOPIDOGREL 75 MG TAB PO SCH (11:27)
[2016-09-02] MEDS: OMEGA-3-ACID ETHYL ESTERS 1000 MG CAP PO SCH (11:28)
[2016-09-02] MEDS: RIVASTIGMINE 13.3 MG PATCH TOP SCH (11:30)
[2016-09-02] MEDS: ATORVASTATIN 40 MG TAB PO SCH (17:41)
[2016-09-02] MEDS: ENOXAPARIN 40 MG/0.4 ML PFS SQ SCH (17:41)
[2016-09-02] MEDS ORDERED: NS 500 ML IV SCH (21:00)
[2016-09-02] MEDS: DOCUSATE-SENNA CONCENTRATE TAB PO SCH (21:45)
[2016-09-03] MEDS: NS IV SCH ×2 (03:32→10:41)
[2016-09-03] MEDS: VALPROATE SODIUM IV SCH ×2 (03:32→10:41)
[2016-09-03] MEDS: NS 1,000 ML IV SCH (05:40)
[2016-09-03] MEDS: ASPIRIN (CHEWABLE) 81 MG TAB PO SCH (10:35)
[2016-09-03] MEDS: Loratadine 10 MG TAB PO SCH (10:36)
[2016-09-03] MEDS: RIVASTIGMINE 13.3 MG PATCH TOP SCH (10:36)
[2016-09-03] MEDS: CLOPIDOGREL 75 MG TAB PO SCH (10:37)
[2016-09-03] MEDS: OMEGA-3-ACID ETHYL ESTERS 1000 MG CAP PO SCH (10:48)
--- NOTE | 2016-09-03 15:49 | GENMEDPROG ---
Currently: Denies: Ambulating - Physical Examination Vital Signs and I&O: Last Vital Signs Temp 98.0 F 09/03/16 12:00 Pulse 87 09/03/16 14:00 Resp 18 09/03/16 12:00 BP 108/55 L 09/03/16 12:00 Pulse Ox 94 09/03/16 12:00 Oxygen Pulse Oxygen Saturation 94 O2 Device Nasal Cannula Oxygen Flow Rate 2 Fraction of Inspired Oxygen ( FIO2) Intake & Output 08/31/16 09/01/16 09/02/16 09/03/16 23:59 23:59 23:59 23:59 Intake Total 7551 6815 160 Balance 1341 3925 160 Patient's weight 66.224 kg 68.084 kg 69.354 kg General: Alert, Mild distress, Well nourished, Weakness (L side), Other (Aphasic ? No verbal response made) HEENT: PERRLA, EOMI, Anicteric Sclera, Mucous membr. moist/pink (drooling L side of mouth, N-L flattening on L) Neck: Normal Trachea alignment, Normal inspection, No Masses palpable Lymphatics: Normal (no adenopathy) Respiratory: Normal - CTA (BBS clear to auscultation without adventitious sounds ) Cardiovascular: Regular rate and rhythm, Normal S1, Normal S2 GI: Normal bowel sounds, Soft, Non tender Extremities/Musculoskeletal: Normal pulses, DJD, Other (paralysis or weakness on left side LUE/LLE) Skin: Warm,Dry and Intact, No breakdown Neurological: Strength (L sided paralysis [id number] and L sided neglect), Drowsy, Somnolent, Lethargy. negative: Normal speech (aphasic) Psych/Mental Status: Normal Affect (L facial weakness), Confused, Disoriented, Somnolent, Lethargic - Assessment (1) Acute CVA (cerebrovascular accident) Acute I63.9 - CEREBRAL INFARCTION, UNSPECIFIED Comment/Plan: She continues on aspirin, but did not receive TPA due to timing/onset of symptoms being prior to noon, which was greater than 6 hours before her return trip at 18:30. Ultrasound of carotids shows less than 50% occlusion of the R-ICA. The L-ICA was not well seen due to positioning of the patient. Patient continues to improve. More responsive each day. Physical therapy and occupational therapy evaluations. Neuro checks q 4 hours. Telemetry. Patient is taking daily aspirin and had aspirin earlier today. Add statin. Check lipid levels. Will add Plavix, which was recommended by the neurologist, Dr. Moise, per report from the emergency department physician. NOTE: TPA NOT GIVEN. NO TPA DUE TO: patient outside of time window and diagnosis is not certain, and symptoms are improving. (2) Facial droop Acute R29.810 - FACIAL WEAKNESS Comment/Plan: Facial droop is resolving. Continue with Speech therapy evaluation and treatment. (3) Impaired speech Acute R47.9 - UNSPECIFIED SPEECH DISTURBANCES Qualifiers: Speech disturbance type: dysarthria Qualified Code(s): R47.1 - Dysarthria and anarthria Comment/Plan: Speech therapy eval and treat. Speech therapy has cleared her for pureed diet with nectar thick liquids. (4) Left-sided weakness Acute M62.81 - MUSCLE WEAKNESS (GENERALIZED) Comment/Plan: She is able to move both arms today, has chronic arthritic changes in left hand. Bilateral lower extremity weakness is likely chronic. continue with PT/OT evaluation and treatment. (5) Altered mental status Acute R41.82 - ALTERED MENTAL STATUS, UNSPECIFIED Qualifiers: Altered mental status type: transient alteration of awareness Coma depth: C Coma timing: C Qualified Code(s): R40.4 - Transient alteration of awareness Comment/Plan: Patientis currently more arouseable, able to speak and follow commands. Seems to be recovering from stroke. Continue evaluation. (6) Bipolar disorder Chronic F31.9 - BIPOLAR DISORDER, UNSPECIFIED Qualifiers: Active/Remission status: in remission of unspecified degree Current bipolar episode type: C Current episode severity: C Psychotic features: P Most recent bipolar episode type: M Qualified Code(s): F31.70 - Bipolar disorder, currently in remission, most recent episode unspecified Comment/Plan: Continue meds. (7) COPD (chronic obstructive pulmonary disease) Chronic J44.9 - CHRONIC OBSTRUCTIVE PULMONARY DISEASE, UNSPECIFIED Qualifiers: COPD type: unspecified COPD Chronic bronchitis type: C Emphysema type: E Qualified Code(s): J44.9 - Chronic obstructive pulmonary disease, unspecified Comment/Plan: Stable with no wheezing or respiratory distress at this time. Plan: DuoNeb treatments p.r.n. wheezing or respiratory distress. (8) Diabetes mellitus Chronic E11.9 - TYPE 2 DIABETES MELLITUS WITHOUT COMPLICATIONS Qualifiers: Diabetes mellitus type: type 2 Diabetes mellitus complication status: with circulatory complication Diabetes mellitus complication detail: with other circulatory complications Diabetic retinopathy severity: D Proliferative retinopathy type: P Diabetes mellitus macular edema: D Diabetes mellitus shelter insulin use: without termite exterminator helper use Laterality: L Chronic kidney disease stage: C Qualified Code(s): E11.59 - Type 2 diabetes mellitus with other circulatory complications Comment/Plan: continue meds, accu check, ssi (9) Hypertension Chronic I10 - ESSENTIAL (PRIMARY) HYPERTENSION Qualifiers: Hypertension type: essential hypertension Qualified Code(s): I10 - Essential (primary) hypertension Comment/Plan: Continue meds and monitor Additional Notes: anticipate return to [facility] Case Care Discussed with: Nursing Staff, Occupational Therapy, Physical Therapy , Resource Management Education/Counseling Given To: Patient Education/Counseling Given Regarding: Diagnosis, Treatment, Prognosis Critical Care: No Couseling Time (>50% in counseling/coordination): Yes
[2016-09-03] MEDS ORDERED: Vaccine Screening Complete SCH (17:00)
[2016-09-03] MEDS: ATORVASTATIN 40 MG TAB PO SCH (18:12)
[2016-09-03] MEDS: ENOXAPARIN 40 MG/0.4 ML PFS SQ SCH (18:13)
[2016-09-03] MEDS: DIVALPROEX SODIUM 125 MG CAP PO SCH (21:07)
[2016-09-03] MEDS: DOCUSATE-SENNA CONCENTRATE TAB PO SCH (21:10)
[2016-09-04] MEDS: NS 1,000 ML IV SCH ×2 (03:14→03:16)
[2016-09-04] MEDS: ASPIRIN (CHEWABLE) 81 MG TAB PO SCH (08:12)
[2016-09-04] MEDS: CLOPIDOGREL 75 MG TAB PO SCH (08:13)
[2016-09-04] MEDS: RIVASTIGMINE 13.3 MG PATCH TOP SCH (08:13)
[2016-09-04] MEDS: DIVALPROEX SODIUM 125 MG CAP PO SCH ×2 (08:13→20:47)
[2016-09-04] MEDS: Loratadine 10 MG TAB PO SCH (08:13)
[2016-09-04 11:10] VITALS: TEMP 97.8
--- NOTE | 2016-09-04 12:50 | PCM.DCS92 ---
- Final/Secondary Discharge Diagnosis (1) Acute CVA (cerebrovascular accident) Acute I63.9 - CEREBRAL INFARCTION, UNSPECIFIED Present on Admission: Yes Comment: She continues on aspirin, but did not receive TPA due to timing/onset of symptoms being prior to noon, which was greater than 6 hours before her return trip at 18:30. Ultrasound of carotids shows less than 50% occlusion of the R-ICA. The L-ICA was not well seen due to positioning of the patient. Patient continues to improve. More responsive each day. Physical therapy and occupational therapy evaluations. Neuro checks q 4 hours. Telemetry. Patient is taking daily aspirin and had aspirin earlier today. Add statin. Check lipid levels. Will add Plavix, which was recommended by the neurologist, Dr. Moise, per report from the emergency department physician. NOTE: TPA NOT GIVEN. NO TPA DUE TO: patient outside of time window and diagnosis is not certain, and symptoms are improving. (2) Facial droop Acute R29.810 - FACIAL WEAKNESS Present on Admission: Yes Comment: Facial droop is resolving. Continue with Speech therapy evaluation and treatment. (3) Impaired speech Acute R47.9 - UNSPECIFIED SPEECH DISTURBANCES Present on Admission: Yes dysarthria R47.1 - Dysarthria and anarthria Comment: Speech therapy eval and treat. Speech therapy has cleared her for pureed diet with nectar thick liquids. (4) Left-sided weakness Acute M62.81 - MUSCLE WEAKNESS (GENERALIZED) Present on Admission: Yes Comment: She is able to move both arms today, has chronic arthritic changes in left hand. Bilateral lower extremity weakness is likely chronic. continue with PT/OT evaluation and treatment. (5) Altered mental status Acute R41.82 - ALTERED MENTAL STATUS, UNSPECIFIED Present on Admission: Yes transient alteration of awareness C C R40.4 - Transient alteration of awareness Comment: Patient is currently more arouseable, able to speak and follow commands. Seems to be recovering from stroke. Continue rehabilitation with outpatient PT/OT and speech therapy. (6) Bipolar disorder Chronic F31.9 - BIPOLAR DISORDER, UNSPECIFIED in remission of unspecified degree C C P M F31.70 - Bipolar disorder , currently in remission, most recent episode unspecified Comment: Continue meds. (7) COPD (chronic obstructive pulmonary disease) Chronic J44.9 - CHRONIC OBSTRUCTIVE PULMONARY DISEASE, UNSPECIFIED Present on Admission: Yes unspecified COPD C E J44.9 - Chronic obstructive pulmonary disease, unspecified Comment: Stable with no wheezing or respiratory distress at this time. Plan: DuoNeb treatments p.r.n. wheezing or respiratory distress. (8) Diabetes mellitus Chronic E11.9 - TYPE 2 DIABETES MELLITUS WITHOUT COMPLICATIONS Present on Admission: Yes type 2 with circulatory complication with other circulatory complications D P D without manager terminal use L C E11.59 - Type 2 diabetes mellitus with other circulatory complications Comment: continue meds, accu check, ssi (9) Hypertension Chronic I10 - ESSENTIAL (PRIMARY) HYPERTENSION essential hypertension I10 - Essential (primary) hypertension Comment: Continue meds and monitor Discharge Disposition: Discharge w/ Home Health Discharge Condition: Improved Cognitive Discharge Status: Cognitive deficits prevent decision making for safety. Fuctional Discharge Status: Walker Assistance, Wheelchair Assistance, Inability to drive due to severe medical illness, Deconditioning, Ambulatory Dysfunction Physician Follow up/Referrals: Tereza Vallejo MD [Primary Care Provider] - One Week Home Medications / New Prescriptions: New Acetaminophen Tablet [TYLENOL Tablet] 650 mg PO Q6H PRN #60 tablet PRN Reason: Mild Pain Or Fever Above 100.4 Atorvastatin Calcium [Lipitor] 40 mg PO DAILY@1800 #30 tablet Clopidogrel Bisulfate [Plavix] 75 mg PO DAILY #30 tablet Rivastigmine Tartrate [Exelon 13.3 mg Patch] 13.3 mg TOP DAILY #30 patch Continue Sennosides/Docusate Sodium [Senna S Tablet] 1 tab PO HS Lactulose [Enulose] 30 ml PO DAILY PRN PRN Reason: Constipation Calcium Carbonate + Vitamin D [Oscal with Vitamin D] 500 mg PO BID [id number] Ethyl Esters [Lovaza (Montrose-3 Acid Ethyl Esters)] 1,000 mg PO DAILY Aspirin [Aspirin, Chewable] 81 mg PO DAILY Risperidone Microspheres [Risperdal Consta] 37.5 mg IM .[id number] Health Shake Supplement 1 each PO DAILY@0700,1100 Loratadine [Claritin] 10 mg PO DAILY Zinc Oxide 30 gm TOP Q2H Dimethicone/Zinc Oxide [Alexandra Protect Cream] 142 gm TOP Q2H Divalproex Sodium [Depakote] 375 mg PO BID Discontinued Nitrofurantoin Monohyd/M-Cryst [Macrobid 100 mg Capsule] 100 mg PO .[id number] Rivastigmine Tartrate [Exelon] 6 mg PO BID Discharge Home Medication List Aspirin [Aspirin, Chewable] 81 mg PO DAILY 07/17/13 [History Confirmed 09/01/16 Last Taken 08/31/16 08:00] Calcium Carbonate + Vitamin D [Oscal with Vitamin D] 500 mg PO BID 07/17/13 [ History Confirmed 09/01/16 Last Taken 08/31/16 08:00] Lactulose [Enulose] 30 ml PO DAILY PRN 07/17/13 [History Confirmed 09/01/16 Last Taken 08/31/16] [id number] Ethyl Esters [Lovaza (Montrose-3 Acid Ethyl Esters)] 1,000 mg PO DAILY 07/17/13 [History Confirmed 09/01/16 Last Taken 08/31/16 08:00] Sennosides/Docusate Sodium [Senna S Tablet] 1 tab PO HS 07/17/13 [History Confirmed 09/01/16 Last Taken 08/30/16 20:00] Risperidone Microspheres [Risperdal Consta] 37.5 mg IM .[id number] 04/20/14 [ History Confirmed 09/01/16 Last Taken 08/21/16] Health Shake Supplement 1 each PO DAILY@0700,1100 06/15/14 [History Confirmed Last Taken 08/31/16] Dimethicone/Zinc Oxide [Alexandra Protect Cream] 142 gm TOP Q2H 08/31/16 [History Confirmed 09/01/16 Last Taken 08/31/16] Divalproex Sodium [Depakote] 375 mg PO BID 08/31/16 [History Confirmed 09/01/16 Last Taken 08/31/16 08:00] Loratadine [Claritin] 10 mg PO DAILY 08/31/16 [History Confirmed 09/01/16 Last Taken 08/31/16 08:00] Zinc Oxide 30 gm TOP Q2H 08/31/16 [History Confirmed 08/31/16 Last Taken Unknown ] Acetaminophen Tablet [TYLENOL Tablet] 650 mg PO Q6H PRN #60 tablet 09/04/16 [Rx Last Taken Unknown] Atorvastatin Calcium [Lipitor] 40 mg PO DAILY@1800 #30 tablet 09/04/16 [Rx Last Taken Unknown] Clopidogrel Bisulfate [Plavix] 75 mg PO DAILY #30 tablet 09/04/16 [Rx Last Taken Unknown] Rivastigmine Tartrate [Exelon 13.3 mg Patch] 13.3 mg TOP DAILY #30 patch [Rx Last Taken Unknown] O2 Device: Nasal Cannula Oxygen Flow Rate: 2 Oxygen to be used after Discharge: Continuous Diet at Discharge: Heart Healthy, Low Salt Activity: As Tolerated Call Office For: Worsening Symptoms, Fever over 101 F, Pain Uncontrolled By Meds Discontinue use of:: Alcohol, All Types of Tobacco - DC Summary Notes Home Health Need / Intermediate Services:: Patient requires a skilled evaluation for rehabilitation services. To include gait training, transfer training and stair training. Instruction on use of assistive devices for ambulation on all surfaces. Instruct and upgrade home exercise program and therapeutic exercises to increase strength and endurance.Passive and active ROM exercises for strengthening. Recommend home adaptation to facilitate safety. Safety, pain and medication management. Hospital Course Note:: Discharge summary on patient named MARKO PALMA admitted to [facility] on 08/31/16 by Neel Garcia MD. Date of discharge is [].The patient is a 76 yo woman from [facility] who presented earlier today with some drooling and tongue protruding, had a workup, the drooling and tongue protrusion mostly resolved, and then the patient was sent back to the facility. The patient returned to the emergency department later today with worsening drooling, paucity of speech, and altered mental status; this was apparently a worsening of her status. The patient is able to say only a few garbled words and cannot give any history, so history is obtained from the emergency department staff, medical records, and the facility staff. Per staff at the facility, the patient's baseline was that she uses a wheelchair, but she can normally talk without difficulty, does not have upper extremity weakness, and does not have any difficulty with eating. Usually she has no difficulty eating but by supper time today, she could not even take pureed foods, she was drooling, and she had a facial droop. They also noticed today that her left arm is weak. Onset of symptoms: unclear. First episode happened around noon today. Then after she returned, she gradually worsened. but happened before 6 pm today. Duration: intermittent. Location: Face, mouth, left arm. Radiation: none. Character: decreased speaking. Drooling. Left arm weakness. Altered mental status/confusion. Alleviated by nothing. Exacerbated by nothing. Associated symptoms: decreased speaking. Drooling. Left arm weakness. Altered mental status/confusion. Treatments: none except usual medications. She continues on aspirin, but did not receive TPA due to timing/onset of symptoms being prior to noon, which was greater than 6 hours before her return trip at 18:30. Ultrasound of carotids shows less than 50% occlusion of the R- ICA. The L-ICA was not well seen due to positioning of the patient. Patient continues to improve. More responsive each day. She continues to receive physical therapy and occupational therapy evaluations. Neuro checks are done every 4 hours. Patient is taking daily aspirin and Plavix. Add statin. We added Plavix, which was recommended by the neurologist, Dr. Moise. NOTE: TPA NOT GIVEN. NO TPA DUE TO: patient outside of time window and diagnosis is not certain, and symptoms were improving. Currently her BP is 110/57 She is able to move both arms today, has chronic arthritic changes in left hand. Bilateral lower extremity weakness is likely chronic. continue with PT/OT evaluation and treatment. she appears to be recovering from her stroke. We will discharge her back to the assisted living facility with Home Health Physical therapy and speech therapy for follow-up. Total Time: 40 Code: 09409 (>30min.) - Physical Exam Vital Signs: Last Vital Signs Temp 97.4 F L 09/04/16 11:53 Pulse 88 09/04/16 11:53 Resp 18 09/04/16 11:53 BP 113/62 09/04/16 11:53 Pulse Ox 95 09/04/16 11:53 Oxygen Pulse Oxygen Saturation 95 O2 Device Nasal Cannula Oxygen Flow Rate 2 Fraction of Inspired Oxygen ( FIO2) Constitutional: No apparent distress, Alert (Awake) Oriented to: Person, Place - HEENT Head: Other (LEFT FACIAL DROOP) Eye: Normal (PERRL, EOMI, Sclera white) Oropharynx: Normal (Pharynx:Moist without exudate,Gums-no swelling) Tympanic Membrane: Normal ENT EAC: Normal TMJ: Normal Nose: No Symptoms Reported (septum midline) - Respiratory/Cardiovascular Respiratory: Normal - CTA (BBS clear to auscultation without adventitious sounds ) Cardiovascular: Normal - GI Auscultation: Normal (NABS) Palpation: Normal (Soft,No rebound or guarding, non distended) Tenderness: Non tender Oshea's Sign: Negative Rectal Exam: Deferred - Musculoskeletal Back: Normal (Non-Tender) Extremities: Normal (Normal tone, Pulses 2+ No cyanosis or edema, FROM) - Integumentary Skin: Warm, Dry Lymphatics: Normal (no adenopathy) - Neurologic Memory Impaired: Normal Motor Function: Abnormal Cranial Nerve: Normal Cerebellar: Normal Mood Description: Normal Thought: Coherent Perception: Normal
[2016-09-04] MEDS: ATORVASTATIN 40 MG TAB PO SCH (16:20)
[2016-09-04] MEDS: OMEGA-3-ACID ETHYL ESTERS 1000 MG CAP PO SCH (16:20)
[2016-09-04] MEDS: ENOXAPARIN 40 MG/0.4 ML PFS SQ SCH (16:20)
--- NOTE | 2016-09-04 19:27 | GENMEDPROG ---
Currently: Denies: Ambulating - Physical Examination Vital Signs and I&O: Last Vital Signs Temp 97.4 F L 09/04/16 11:53 Pulse 100 09/04/16 18:00 Resp 18 09/04/16 11:53 BP 113/62 09/04/16 11:53 Pulse Ox 95 09/04/16 11:53 Oxygen Pulse Oxygen Saturation 95 O2 Device Nasal Cannula Oxygen Flow Rate 2 Fraction of Inspired Oxygen ( FIO2) Intake & Output 09/01/16 09/02/16 09/03/16 09/04/16 23:59 23:59 23:59 23:59 Intake Total 1341 2715 984 1539 Balance 1341 2715 984 1539 Patient's weight 66.224 kg 68.084 kg 69.354 kg 71.923 kg Lymphatics: Normal (no adenopathy) Respiratory: Normal - CTA (BBS clear to auscultation without adventitious sounds ) - Assessment (1) Acute CVA (cerebrovascular accident) Acute I63.9 - CEREBRAL INFARCTION, UNSPECIFIED Comment/Plan: She continues on aspirin, but did not receive TPA due to timing/onset of symptoms being prior to noon, which was greater than 6 hours before her return trip at 18:30. Ultrasound of carotids shows less than 50% occlusion of the R-ICA. The L-ICA was not well seen due to positioning of the patient. Patient continues to improve. More responsive each day. Physical therapy and occupational therapy evaluations. Neuro checks q 4 hours. Telemetry. Patient is taking daily aspirin and had aspirin earlier today. Add statin. Check lipid levels. Will add Plavix, which was recommended by the neurologist, Dr. Moise, per report from the emergency department physician. NOTE: TPA NOT GIVEN. NO TPA DUE TO: patient outside of time window and diagnosis is not certain, and symptoms are improving. (2) Facial droop Acute R29.810 - FACIAL WEAKNESS Comment/Plan: Facial droop is resolving. Continue with Speech therapy evaluation and treatment. (3) Impaired speech Acute R47.9 - UNSPECIFIED SPEECH DISTURBANCES Qualifiers: Speech disturbance type: dysarthria Qualified Code(s): R47.1 - Dysarthria and anarthria Comment/Plan: Speech therapy eval and treat. Speech therapy has cleared her for pureed diet with nectar thick liquids. (4) Left-sided weakness Acute M62.81 - MUSCLE WEAKNESS (GENERALIZED) Comment/Plan: She is able to move both arms today, has chronic arthritic changes in left hand. Bilateral lower extremity weakness is likely chronic. continue with PT/OT evaluation and treatment. (5) Altered mental status Acute R41.82 - ALTERED MENTAL STATUS, UNSPECIFIED Qualifiers: Altered mental status type: transient alteration of awareness Coma depth: C Coma timing: C Qualified Code(s): R40.4 - Transient alteration of awareness Comment/Plan: Patient is currently more arouseable, able to speak and follow commands. Seems to be recovering from stroke. Continue rehabilitation with outpatient PT/OT and speech therapy. (6) Bipolar disorder Chronic F31.9 - BIPOLAR DISORDER, UNSPECIFIED Qualifiers: Active/Remission status: in remission of unspecified degree Current bipolar episode type: C Current episode severity: C Psychotic features: P Most recent bipolar episode type: M Qualified Code(s): F31.70 - Bipolar disorder, currently in remission, most recent episode unspecified Comment/Plan: Continue meds. (7) COPD (chronic obstructive pulmonary disease) Chronic J44.9 - CHRONIC OBSTRUCTIVE PULMONARY DISEASE, UNSPECIFIED Qualifiers: COPD type: unspecified COPD Chronic bronchitis type: C Emphysema type: E Qualified Code(s): J44.9 - Chronic obstructive pulmonary disease, unspecified Comment/Plan: Stable with no wheezing or respiratory distress at this time. Plan: DuoNeb treatments p.r.n. wheezing or respiratory distress. (8) Diabetes mellitus Chronic E11.9 - TYPE 2 DIABETES MELLITUS WITHOUT COMPLICATIONS Qualifiers: Diabetes mellitus type: type 2 Diabetes mellitus complication status: with circulatory complication Diabetes mellitus complication detail: with other circulatory complications Diabetic retinopathy severity: D Proliferative retinopathy type: P Diabetes mellitus macular edema: D Diabetes mellitus prison insulin use: without prison use Laterality: L Chronic kidney disease stage: C Qualified Code(s): E11.59 - Type 2 diabetes mellitus with other circulatory complications Comment/Plan: continue meds, accu check, ssi (9) Hypertension Chronic I10 - ESSENTIAL (PRIMARY) HYPERTENSION Qualifiers: Hypertension type: essential hypertension Qualified Code(s): I10 - Essential (primary) hypertension Comment/Plan: Continue meds and monitor
[2016-09-04] MEDS: DOCUSATE-SENNA CONCENTRATE TAB PO SCH (20:47)
[2016-09-05 03:45] VITALS: BMI 26.3
[2016-09-05] MEDS: NS 1,000 ML IV SCH (06:08)
[2016-09-05] MEDS: ASPIRIN (CHEWABLE) 81 MG TAB PO SCH (08:06)
[2016-09-05] MEDS: Loratadine 10 MG TAB PO SCH (08:06)
[2016-09-05] MEDS: CLOPIDOGREL 75 MG TAB PO SCH (08:07)
[2016-09-05] MEDS: RIVASTIGMINE 13.3 MG PATCH TOP SCH (08:07)
[2016-09-05] MEDS: DIVALPROEX SODIUM 125 MG CAP PO SCH (08:07)
[2016-09-05] MEDS: OMEGA-3-ACID ETHYL ESTERS 1000 MG CAP PO SCH (10:45)
[2016-09-05 11:27] VITALS: BP 101/56; PULSE 101; TEMP 97.9
== END 2016-09-05 14:40 | DRG 65 ==
LOC: ED 20:00 → PCU 23:56
PROVIDERS: ADMIT Internal Medicine; ATTEND Family Medicine
DX: I63.9 Cerebral infarction, unspecified (principal); G81.94 Hemiplegia, unspecified affecting left nondominant side; E11.59 Type 2 diabetes mellitus with other circulatory complications; F03.90 Unspecified dementia, unspecified severity, without behavioral disturbance, psychotic disturbance, mood disturbance, and anxiety; I67.9 Cerebrovascular disease, unspecified; R47.1 Dysarthria and anarthria; Z66 Do not resuscitate; I73.9 Peripheral vascular disease, unspecified; Z79.82 Long term (current) use of aspirin; I10 Essential (primary) hypertension; Z79.899 Other long term (current) drug therapy; E78.00 Pure hypercholesterolemia, unspecified; F31.70 Bipolar disorder, currently in remission, most recent episode unspecified; R40.0 Somnolence; J44.9 Chronic obstructive pulmonary disease, unspecified; Z87.891 Personal history of nicotine dependence
CPT/HCPCS: 80048; 80061; 85027; 93005; 93880; 96372; 97161; 97165; 99283; J1650; J3490; J7030

== ENCOUNTER 2016-09-06 15:24 | Emergency (ER) | payer MEDICARE, MEDICAID ==
--- NOTE | 2016-09-06 15:31 | EDPRACDOC ---
- General Information Chief Complaint: Dyspnea/Resp distress Stated Complaint: DIFFICULTY BREATHING Time Seen by Provider: 09/06/16 15:27 Home Medications: Home Medications Aspirin [Aspirin, Chewable] 81 mg PO DAILY 07/17/13 Calcium Carbonate + Vitamin D [Oscal with Vitamin D] 500 mg PO BID 07/17/13 Lactulose [Enulose] 30 ml PO DAILY PRN 07/17/13 [id number]-[id number] Ethyl Esters [Lovaza (Darragh-3 Acid Ethyl Esters)] 1,000 mg PO DAILY 07/17/13 Sennosides/Docusate Sodium [Senna S Tablet] 1 tab PO HS 07/17/13 Health Shake Supplement 1 each PO DAILY@0700,1100 06/15/14 Dimethicone/Zinc Oxide [Alexandra Protect Cream] 142 gm TOP Q2H 08/31/16 Divalproex Sodium [Depakote] 375 mg PO BID 08/31/16 Loratadine [Claritin] 10 mg PO DAILY 08/31/16 Zinc Oxide 30 gm TOP Q2H PRN 08/31/16 Acetaminophen Tablet [TYLENOL Tablet] 650 mg PO Q6H PRN #60 tablet 09/04/16 Atorvastatin Calcium [Lipitor] 40 mg PO DAILY@1800 #30 tablet 09/04/16 Clopidogrel Bisulfate [Plavix] 75 mg PO DAILY #30 tablet 09/04/16 Rivastigmine Tartrate [Exelon 13.3 mg Patch] 13.3 mg TOP DAILY #30 patch Furosemide [Lasix] 20 mg PO DAILY #30 tablet 09/06/16 Potassium Chloride 10 meq PO DAILY #30 capsule.er 09/06/16 Risperidone Microspheres [Risperdal Consta] 37.5 mg IM .[id number] 09/06/16 Allergies/Adverse Reactions: Allergies Allergy/AdvReac Type Severity Reaction Status Date / Time Sulfa (Sulfonamide Allergy Unknown Unknown Verified 08/31/16 14:24 Antibiotics) - History of Present Illness HPI: PATIENT PRESENTS WITH SOB AND COUGH FOR DAYS. INITIALLY NURSING FACILITY FELT SHE WAS CONFUSED BUT AT BASELINE WHEN EMS ARRIVED. NO FEVER. NO RUNNY NOSE. NO N/V Shortness of Breath: Mild Cough: Reports: Non-productive Rhinorrhea: Reports: None Ear Symptoms: Reports: None SOB Improves with: Reports: Nothing Associated Signs and symptoms: Reports: Cough, AMS. Denies: Nasal Symptoms, Vomiting, Diarrhea, Myalgia ED Past Medical History - History Reviewed Yes Nurses notes reviewed and agree except as marked Travel Outside of [place] in the Last 3 Months?: No - Patient Medical History Neurological History: Reports: Dementia Cardiac History: Reports: Hypertension, Congestive Heart Failure (ECHO 2014: EF55-60%. Diastolic dysfunction. Pulm art press 39mmHg. Mild TR.), Hypercholesterolemia (AND PERIPHERAL VASCULAR DISEASE) Respiratory History: Reports: COPD (possible diagnosis) Musculoskeletal History: Reports: Arthritis, Osteoarthritis Psychological History: Reports: Bipolar Disorder (TYPE 1.). Denies: Depression , Substance Use Disorder Systemic History: Reports: Diabetes. Denies: Cancer Surgical History: Reports: Hysterectomy, Other (Right hip ORIF) - Family Medical History Reports: Diabetes (In grandparent.), Cancer (Father with prostate cancer.), Cardiac Disorders (Mother with [place].) - Social Medical History Smoking Status: Former smoker Social History: Denies: Substance Use Disorder ETOH: None Substance Abuse: None Lives In: [facility] Facility EDM Review of Systems - Review of Systems ROS Negative Except as Marked: Yes All systems reviewed and were negative except as marked Constitutional: No Symptoms Reported. negative: Fever, Chills, Weakness, Fatigue, Loss of Appetite Eyes: No Symptoms Reported. negative: Redness, Blurred Vision, Double Vision, Discharge, Pain, Light Sensitive, Photophobia Ears: No Symptoms Reported. negative: Pain, Hearing Loss, Drainage, Ear Pulling Throat: No Symptoms Reported. negative: Pain, Swelling Nose: No Symptoms Reported. negative: Congestion, Bleeding, Discharge, Injection, Swelling, Deformity, Ecchymosis, Tender, Abrasion, Laceration Mouth: No Symptoms Reported. negative: Pain, Drooling Respiratory: Cough, Shortness of Breath. negative: Barky Cough, Brassy Cough, Hemoptysis, Wheezing Cardiovascular: No Symptoms Reported. negative: Chest Pain, Palpitations, Syncope, Edema, Orthopnea, PND, Skin Mottling, Cyanosis Gastrointestinal: No Symptoms Reported. negative: Pain, Constipation, Nausea, Vomiting, Diarrhea, Melena, Formula Intolerance Genitourinary: No Symptoms Reported. negative: Dysuria, Hematuria, Frequency, Discharge, Bleeding, Testicular Pain, Neurological: No Symptoms Reported. negative: Headache, Dizziness, Seizure, Numbness, Weakness, Speech Difficulty, Gait Difficulty Musculoskeletal: No Symptoms Reported. negative: Neck, Chestwall, Ribs, Back, Shoulder, Arm, Elbow, Forearm, Wrist, Hand, Pelvis, Hip, Femur, Knee, Leg, Ankle , Foot Integumentary: No Symptoms Reported. negative: Itching, Rash, Bruising, Wound Allergic/Immunologic: No Symptoms Reported. negative: Hives, Itching Hematologic: No Symptoms Reported. negative: Lymphadenopathy, Easy Bruising, Easy Bleeding Endocrine: No Symptoms Reported. negative: Weight Gain, Weight Loss Psychiatric: No Symptoms Reported. negative: Anxiety, Depression, Hallucinations, Insomnia, Suicidal - Physical Exam Constitutional: Alert (Awake) Oriented to: Time, Person, Place Last recorded Vital Signs: Oxygen Pulse Oxygen Saturation O2 Device Oxygen Flow Rate Fraction of Inspired Oxygen ( FIO2) - HEENT Head: Normal ( normocephalic) Eye Exam: Normal (PERRL, EOMI, Sclera white) Oropharynx: Normal (Pharynx:Moist without exudate,Gums-no swelling) Tympanic Membrane: Normal ENT EAC: Normal TMJ: Normal Nose: No Symptoms Reported (septum midline) Neck: Normal (FROM, trachea at midline) - Respiratory/Cardiovascular Respiratory: Accessory Muscle Use, Wheezes Cardiovascular: Tachycardia - GI Auscultation: Normal (NABS) Palpation: Normal (Soft,No rebound or guarding, non distended) Tenderness: Non tender Oshea's Sign: Negative - Bladder: Normal - Musculoskeletal Back: Normal (Non-Tender) Extremities: Normal (Normal tone, Pulses 2+ No cyanosis or edema, FROM) - Integumentary Skin: Warm, Dry, Pale Lymphatics: Normal (no adenopathy) - Neurologic Memory Impaired: Short-term Motor Function: Normal (Normal tone, Pulses 2+ No cyanosis or edema, FROM) Cranial Nerve: Normal (CN II-X11 intact sensation, strength 5/5) Cerebellar: Normal Mood Description: Normal Thought: Coherent Perception: Normal ED SOB MDM - Results Result Diagrams: 09/06/16 15:50 09/06/16 15:50 - EKG EKG #1 EKG Time: 15:29 -: Yes EKG interpreted by me Rate: bpm: 91 [place]: Normal Rhythm: Aflutter Block: None Hypertrophy: None ST: Normal Decision Time to Discharge: 17:15 - Departure Yes I personally saw and evaluated the patient. Disposition: Home Condition: Stable Final Diagnosis: CHF exacerbation Qualifiers: Congestive heart failure type: unspecified congestive heart failure type Qualified Code(s): I50.9 - Heart failure, unspecified Instructions: *Heart Failure (Activity, Diet, Worsening Symptoms, Weight Monitoring)(ED) Education/Counseling Given To: Patient Education/Counseling Given Regarding: Diagnosis, Treatment, Prognosis, Follow Up Referrals: Tereza Vallejo MD [Primary Care Provider] - One Week Prescriptions: New Furosemide [Lasix] 20 mg PO DAILY #30 tablet Potassium Chloride 10 meq PO DAILY #30 capsule.er No Action Sennosides/Docusate Sodium [Senna S Tablet] 1 tab PO HS Lactulose [Enulose] 30 ml PO DAILY PRN PRN Reason: Constipation Calcium Carbonate + Vitamin D [Oscal with Vitamin D] 500 mg PO BID [id number] Ethyl Esters [Lovaza (Darragh-3 Acid Ethyl Esters)] 1,000 mg PO DAILY Aspirin [Aspirin, Chewable] 81 mg PO DAILY Health Shake Supplement 1 each PO DAILY@0700,1100 Loratadine [Claritin] 10 mg PO DAILY Zinc Oxide 30 gm TOP Q2H PRN PRN Reason: WHILE TOILETING Dimethicone/Zinc Oxide [Alexandra Protect Cream] 142 gm TOP Q2H Divalproex Sodium [Depakote] 375 mg PO BID Acetaminophen Tablet [TYLENOL Tablet] 650 mg PO Q6H PRN #60 tablet PRN Reason: Mild Pain Or Fever Above 100.4 Atorvastatin Calcium [Lipitor] 40 mg PO DAILY@1800 #30 tablet Clopidogrel Bisulfate [Plavix] 75 mg PO DAILY #30 tablet Rivastigmine Tartrate [Exelon 13.3 mg Patch] 13.3 mg TOP DAILY #30 patch Risperidone Microspheres [Risperdal Consta] 37.5 mg IM .[id number]
[2016-09-06] MEDS ORDERED: Albuterol/Ipratropium Neb 3 ML NEB NEB ONE (15:41)
[2016-09-06 15:58] LABS: ABG Draw Site Right Radial; ALLEN'S TEST PASS; BEb 4.2 (+/- 2); TCO2 29.6 MMOL/L (23-27)
[2016-09-06 16:00] LABS: MPV 8.4 fL (7.4-10.4)
--- NOTE | 2016-09-06 16:12 | DIRPT ---
CLINICAL DATA: Several day history of cough and shortness of breath. EXAM: PORTABLE CHEST 1 VIEW COMPARISON: 08/31/2016 FINDINGS: Hrs. Lordotic film with patient rotated to the left. The cardio pericardial silhouette is enlarged. Bibasilar parahilar and basilar airspace disease is evident. Small bilateral pleural effusions. The visualized bony structures of the thorax are intact. Telemetry leads overlie the chest. IMPRESSION: Parahilar and basilar airspace disease with cardiomegaly and small bilateral pleural effusions. Imaging features suggest pulmonary edema. Electronically Signed By: Elbert Cazares M.D. On: 09/06/2016 16:10
[2016-09-06 16:39] LABS: LEUKOCYTES/URINE NEG (NEGATIVE); NITRITE/URINE NEG (NEGATIVE); RBC/URINE 0-2 (0-5); URINE OCCULT BLOOD NEG (NEG/TRACE); WBC/URINE 0-2 (0-5)
[2016-09-06 16:49] VITALS: TEMP 98.5; BMI 33.3
[2016-09-06 16:51] LABS: SEG NEUTROPHIL 32 % (45-76)
[2016-09-06 16:54] LABS: BLOOD UREA NITROGEN 16 MG/DL (7-17); CALC CORRECTED 10.7 MG/DL (8.4-10.2); CALCULATED OSMOLALITY 271 MOs/Kg (270-290); CHLORIDE 107 mEq/L (98-107); GLUCOSE 78 MG/DL (70-99); SODIUM LEVEL 141 mEq/L (137-146); TOTAL PROTEIN 6.6 G/DL (6.3-8.2)
[2016-09-06 16:59] LABS: PARTIAL THROMB. TIME 28.3 SEC (22-35); PT-INR 1.1
[2016-09-06 19:53] VITALS: BP 137/63; PULSE 88
== END 2016-09-06 19:51 | disposition home or self-care (01) ==
LOC: ED 15:24
DX: I50.9 Heart failure, unspecified (principal); F03.90 Unspecified dementia, unspecified severity, without behavioral disturbance, psychotic disturbance, mood disturbance, and anxiety; I10 Essential (primary) hypertension; E78.00 Pure hypercholesterolemia, unspecified; E11.9 Type 2 diabetes mellitus without complications; F31.9 Bipolar disorder, unspecified; Z79.899 Other long term (current) drug therapy
CPT/HCPCS: 36415; 36600; 71010; 80053; 81001; 82803; 83880; 84484; 85007; 85027; 85610; 85730; 87077; 87086; 93005; 94640; 99285; J7620